=== PATIENT | female | born 1985 | race Two or more races ===

== ENCOUNTER 2024-09-11 16:18 | Emergency (ER) | payer OTHER ==
[~2024-09-11] VITALS: Ht 170.2 cm; Wt 72.6 kg
[2024-09-11] MEDS ORDERED: CYCL5TAB PO (16:59)
[2024-09-11 17:09] VITALS: BP 126/81; TEMP 97.9; O2SAT 99
== END 2024-09-11 17:09 | disposition home or self-care (01) ==
LOC: ER 16:28
DX: M54.50 Low back pain, unspecified (principal); M54.2 Cervicalgia; Z88.0 Allergy status to penicillin; V43.52XA Car driver injured in collision with other type car in traffic accident, initial encounter; Y93.89 Activity, other specified; Y92.488 Other paved roadways as the place of occurrence of the external cause; Y99.8 Other external cause status